=== PATIENT | female | born 1995 | race Caucasian/White ===

== ENCOUNTER 2016-11-13 02:27 | Emergency (ER) | payer OTHER ==
[~2016-11-13] VITALS: Ht 157.5 cm; Wt 77.0 kg
[2016-11-13 02:30] VITALS: BP 137/91; PULSE 91; RESP 14; TEMP 98; O2SAT 98
[2016-11-13] MEDS ORDERED: PROZ20CA11 PO (02:45)
[2016-11-13] MEDS ORDERED: birth control (02:45)
--- NOTE | 2016-11-13 02:50 | PD ---
HPI Chief Complaint: GI Complaint Time Seen by Provider: 02:41 Travel History International Travel<30 days: No Contact w/Intl Traveler<30days: No Traveled to known affect area: No History of Present Illness HPI 21-year-old female here with complaint of rectal bleeding. History of hemorrhoids, anal fissure. She's had painless bright red blood per rectum for the last 48 hours with bowel movements. No history of Crohn's, ulcerative colitis and self or family. Patient has never seen this much blood per rectum prompting her ED visit. She had a outpatient EGD and colonoscopy notable only for hemorrhoids approximately 2 years ago. No lightheadedness, dizziness, anticoagulant use. Patient shows pictures of her bloody stools that she took on her phone to me with scant amount of bright red blood in the toilet bowl water but no clots. PFSH Past Medical History Medical History: Denies Significant Hx ?: Not LMP: 11/05/16 Social History Tobacco Use: No Allergies-Medications (Allergen,Severity, Reaction): Coded Allergies: Penicillin (Verified Allergy, Unknown, 11/13/16) Reported Meds & Prescriptions Reported Meds & Active Scripts Active Reported [ control ] Prozac (Fluoxetine HCl) 20 Mg Cap 20 Mg PO DAILY Review of Systems Except as stated in HPI: all other systems reviewed are Neg Physical Exam Narrative GENERAL: Well-appearing female in no acute distress SKIN: Warm and dry. HEAD: Normocephalic. EYES: No scleral icterus. No injection or drainage. ENT: No nasal bleeding or discharge. Mucous membranes pink and moist. NECK: Supple CARDIOVASCULAR: Regular rate and rhythm. RESPIRATORY: No accessory muscle use. GASTROINTESTINAL: Abdomen soft, non-tender, nondistended. Rectal: External rectal examination was small fissure with no active bleeding. Internal digital rectal examination reveals internal hemorrhoids. Hemoccult- positive. MUSCULOSKELETAL: Normal gait NEUROLOGICAL: Awake and alert. Normal speech. PSYCHIATRIC: Appropriate mood and affect; insight and judgment normal. Data Data Last Documented VS Vital Signs Date Time Temp Pulse Resp B/P Pulse Ox O2 Delivery O2 Flow Rate FiO2 11/13/16 02:30 98.0 91 14 137/91 98 Room Air MDM Medical Decision Making Medical Screen Exam Complete: Yes Emergency Medical Condition: Yes Medical Record Reviewed: Yes Differential Diagnosis 21-year-old female here with bright red blood per rectum. Differential includes fissure, hemorrhoid and less likely AVM, polyp, diverticular bleed. Narrative Course Exam is consistent with hemorrhoids, anal fissure and bleeding from same. Patient was encouraged for bowel regimen for home. [facility] Point of Care Internal Pos. & Neg. Controls: Passed Fecal Specimen Occult Blood: Positive Diagnosis Primary Impression: Internal hemorrhoid Additional Impressions: Anal fissure Bright red blood per rectum Referrals: Wendy Meyer MD as needed Additional Instructions: Bowel regimen as discussed. Follow-up with GI if symptoms persist. Med/Other Pt SpecificInfo: No Change to Meds Disposition: 01 DISCHARGE HOME Condition: Stable Yaima Vasquez MD Nov 13, 2016 02:50
== END 2016-11-13 03:04 | disposition home or self-care (01) ==
LOC: NEPE 02:27
DX: K64.8 Other hemorrhoids (principal); K60.2 Anal fissure, unspecified; K62.5 Hemorrhage of anus and rectum
CPT/HCPCS: 99283

== ENCOUNTER 2017-02-16 13:20 | Emergency (ER) | payer OTHER ==
[~2017-02-16 13:20] MED LIST: PROZ20CA11 PO; birth control
[2017-02-16 13:23] VITALS: BP 140/98; PULSE 100; RESP 20; TEMP 98.5; O2SAT 100
[2017-02-16] MEDS ORDERED: SODIUM CHLOR 0.9% 1000 ML INJ 1,000 ML IV ONE (13:45)
[2017-02-16] MEDS ORDERED: SODIUM CHLORIDE 0.9% FLUSH 10 ML FLUSH IVF PRN (13:45)
[2017-02-16 13:53] LABS: BLOOD, URINE NEG (NEG); GLUCOSE,URINE NEG (NEG); KETONE, URINE NEG (NEG); NITRITE,URINE NEG (NEG)
[2017-02-16 13:58] LABS: METHOD OF COLLECTION CLEAN CATCH; URINE COLOR YELLOW (YELLW/STRAW)
[2017-02-16 13:59] LABS: COMMENT (UR) CULT NOT INDICATED; CULTURE IF INDICATED CULT NOT INDICATED; RBC, URINE 0-3 /hpf (0-3); SQUAMOUS EPITHELIAL CELL URINE 0-5 /hpf (0-5)
--- NOTE | 2017-02-16 14:07 | PD ---
HPI Chief Complaint: Dizziness Time Seen by Provider: 13:33 Travel History International Travel<30 days: No Contact w/Intl Traveler<30days: No Traveled to known affect area: No History of Present Illness HPI Patient is a 21-year-old female who presents to emergency room with her mother with multiple complaints. 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 Patient reports that she completed her antibiotics January 24, 2017. Patient reports that she did have her menstrual cycle and was sexually active and did not use protection during her sexual intercourse. Patient reports that she is feeling lightheaded and dizzy and reports that she doesn't feel hungry. Reports concern for possible . Reports no abdominal pain or cramping, reports that she did have 3 episodes of diarrhea today and does feel little nauseous. Patient with no fevers or chills, denies chest pain or shortness breath at this time. Patient denies any abdominal pain. Patient concerned that her symptoms of nausea or vomiting related to . She did not take a home test as "it would be early to see on a home test so I need a blood test." PFSH Past Medical History Depression: Yes Gastrointestinal Disorders: Yes (hemorhoids ) Medical other: Yes (EPSTEINBARR) Tetanus Vaccination: > 5 Years Influenza Vaccination: Yes ?: Unknown Past Surgical History Surgical History: No Previous Surgery Social History Alcohol Use: No Tobacco Use: No Substance Use: No Allergies-Medications (Allergen,Severity, Reaction): Coded Allergies: Penicillin (Verified Allergy, Unknown, 02/16/17) Reported Meds & Prescriptions Reported Meds & Active Scripts Active Zofran Odt (Ondansetron Odt) 4 Mg Tab 4 Mg SL Q6HR PRN Reported [ control ] Prozac (Fluoxetine HCl) 20 Mg Cap 20 Mg PO DAILY Review of Systems General / Constitutional: No: Fever Eyes: No: Visual changes HENT: Positive: Lightheadedness, No: Headaches Cardiovascular: No: Chest Pain or Discomfort Respiratory: No: Shortness of Breath Gastrointestinal: Positive: Nausea, Vomiting, Diarrhea, No: Abdominal Pain Genitourinary: No: Dysuria Musculoskeletal: No: Pain Skin: No Rash Neurologic: No: Weakness Psychiatric: No: Depression Endocrine: No: Polydipsia Hematologic/Lymphatic: No: Easy Bruising Physical Exam Narrative GENERAL: No acute distress, nontoxic SKIN: Focused skin assessment warm/dry. HEAD: Atraumatic. Normocephalic. EYES: Pupils equal and round. No scleral icterus. No injection or drainage. ENT: No nasal bleeding or discharge. Mucous membranes pink and moist. NECK: Trachea midline. No JVD. CARDIOVASCULAR: Regular rate and rhythm. No murmur appreciated. RESPIRATORY: No accessory muscle use. Clear to auscultation. Breath sounds equal bilaterally. GASTROINTESTINAL: Abdomen soft, non-tender, nondistended. MUSCULOSKELETAL: No obvious deformities. No clubbing. No cyanosis. No edema. NEUROLOGICAL: Awake and alert. No obvious cranial nerve deficits. Motor grossly within normal limits. Normal speech. PSYCHIATRIC: Appropriate mood and affect; insight and judgment normal. Data Data Last Documented VS Vital Signs Date Time Temp Pulse Resp B/P Pulse Ox O2 Delivery O2 Flow Rate FiO2 02/16/17 13:35 Room Air 02/16/17 13:23 98.5 100 20 140/98 100 Orders Ed Urine Pregnancytest Poc (02/16/17 13:34) Beta Hcg (Quant/Titer) (02/16/17 13:44) Complete Blood Count With Diff (02/16/17 13:44) Comprehensive Metabolic Panel (02/16/17 13:44) Urinalysis - C+S If Indicated (02/16/17 13:44) Iv Access Insert/Monitor (02/16/17 13:44) Sodium Chloride 0.9% Flush (Ns Flush) (02/16/17 13:45) Sodium Chlor 0.9% 1000 Ml Inj (Ns 1000 M (02/16/17 13:45) Ondansetron Inj (Zofran Inj) (02/16/17 14:15) Labs Laboratory Tests Test 02/16/17 02/16/17 13:50 14:10 Urine Collection Type CLEAN CATCH Urine Color YELLOW Urine Turbidity CLEAR Urine pH 6.0 Urine Specific [place] 1.008 Urine Protein NEG mg/dL Urine Glucose (UA) NEG mg/dL Urine Ketones NEG mg/dL Urine Occult Blood NEG Urine Nitrite NEG Urine Bilirubin NEG Urine Leukocyte Esterase NEG Urine RBC 0-3 /hpf Urine Squamous Epithelial 0-5 /hpf Cells Microscopic Urinalysis Comment CULT NOT INDICATED Urine Collection Time 13:50 White Blood Count 13.5 TH/MM3 Red Blood Count 4.79 MIL/MM3 Hemoglobin 13.4 GM/DL Hematocrit 40.3 % Mean Corpuscular Volume 84.1 FL Mean Corpuscular Hemoglobin 27.9 PG Mean Corpuscular Hemoglobin 33.1 % Concent Red Cell Distribution Width 13.5 % Platelet Count 312 TH/MM3 Mean Platelet Volume 9.8 FL Neutrophils (%) (Auto) 78.4 % Lymphocytes (%) (Auto) 14.2 % Monocytes (%) (Auto) 6.4 % Eosinophils (%) (Auto) 0.8 % Basophils (%) (Auto) 0.2 % Neutrophils # (Auto) 10.6 TH/MM3 Lymphocytes # (Auto) 1.9 TH/MM3 Monocytes # (Auto) 0.9 TH/MM3 Eosinophils # (Auto) 0.1 TH/MM3 Basophils # (Auto) 0.0 TH/MM3 CBC Comment DIFF FINAL Differential Comment Sodium Level 143 MEQ/L Potassium Level 3.7 MEQ/L Chloride Level 109 MEQ/L Carbon Dioxide Level 26.2 MEQ/L Anion Gap 8 MEQ/L Blood Urea Nitrogen 9 MG/DL Creatinine 0.77 MG/DL Estimat Glomerular Filtration 94 ML/MIN Rate Random Glucose 100 MG/DL Calcium Level 8.6 MG/DL Total Bilirubin 0.2 MG/DL Aspartate Amino Transf 13 U/L (AST/SGOT) Alanine Aminotransferase 22 U/L (ALT/SGPT) Alkaline Phosphatase 57 U/L Total Protein 7.1 GM/DL Albumin 3.5 GM/DL Human Chorionic Gonadotropin, LESS THAN 1 Quant MIU/ML MDM Medical Decision Making Medical Screen Exam Complete: Yes Emergency Medical Condition: Yes Interpretation(s) Vital Signs Date Time Temp Pulse Resp B/P Pulse Ox O2 Delivery O2 Flow Rate FiO2 02/16/17 13:35 Room Air 02/16/17 13:23 98.5 100 20 140/98 100 Differential Diagnosis , gastroenteritis, electrolyte abnormality, gastritis, dehydration Narrative Course Patient is a 21 year old female who presents to ER with her mother with c/o of dizzyness, nausea and vomiting and diarrhea since this morning. Patient reports that she feels a little lightheaded, reports that she doesn't feel hungry like she normally does. She reports that she had sexual intercourse and did not use protection and is concerned that she may have early . Patient requesting blood work to confirm or reject diagnosis of Patient is nontoxic on evaluation, patient with normal neurological exam. Patient is laughing and smiling, patient with no abdominal pain, then is soft, nontender, nondistended, no peritoneal signs. Vital Signs Date Time Temp Pulse Resp B/P Pulse Ox O2 Delivery O2 Flow Rate FiO2 02/16/17 13:35 Room Air 02/16/17 13:23 98.5 100 20 140/98 100 Patient's vital signs are stable at this time, plan to obtain lab work including hCG Quant, will give IV fluids and antiemetics as patient reports that she feels nauseous. Laboratory Tests Test 02/16/17 02/16/17 13:50 14:10 Urine Collection Type CLEAN CATCH Urine Color YELLOW (YELLW/STRAW) Urine Turbidity CLEAR (CLEAR) Urine pH 6.0 (5.0-8.5) Urine Specific [place] 1.008 (1.002-1.035) Urine Protein NEG mg/dL (NEG-TRACE) Urine Glucose (UA) NEG mg/dL (NEG) Urine Ketones NEG mg/dL (NEG) Urine Occult Blood NEG (NEG) Urine Nitrite NEG (NEG) Urine Bilirubin NEG (NEG) Urine Leukocyte Esterase NEG (NEG) Urine RBC 0-3 /hpf (0-3) Urine Squamous Epithelial 0-5 /hpf (0-5) Cells Microscopic Urinalysis Comment CULT NOT INDICATED Urine Collection Time 13:50 White Blood Count 13.5 TH/MM3 (4.0-11.0) Red Blood Count 4.79 MIL/MM3 (4.00-5.30) Hemoglobin 13.4 GM/DL (11.6-15.3) Hematocrit 40.3 % (35.0-46.0) Mean Corpuscular Volume 84.1 FL (80.0-100.0) Mean Corpuscular Hemoglobin 27.9 PG (27.0-34.0) Mean Corpuscular Hemoglobin 33.1 % Concent (32.0-36.0) Red Cell Distribution Width 13.5 % (11.6-17.2) Platelet Count 312 TH/MM3 (150-450) Mean Platelet Volume 9.8 FL (7.0-11.0) Neutrophils (%) (Auto) 78.4 % (16.0-70.0) Lymphocytes (%) (Auto) 14.2 % (9.0-44.0) Monocytes (%) (Auto) 6.4 % (0.0-8.0) Eosinophils (%) (Auto) 0.8 % (0.0-4.0) Basophils (%) (Auto) 0.2 % (0.0-2.0) Neutrophils # (Auto) 10.6 TH/MM3 (1.8-7.7) Lymphocytes # (Auto) 1.9 TH/MM3 (1.0-4.8) Monocytes # (Auto) 0.9 TH/MM3 (0-0.9) Eosinophils # (Auto) 0.1 TH/MM3 (0-0.4) Basophils # (Auto) 0.0 TH/MM3 (0-0.2) CBC Comment DIFF FINAL Differential Comment Sodium Level 143 MEQ/L (136-145) Potassium Level 3.7 MEQ/L (3.5-5.1) Chloride Level 109 MEQ/L (98-107) Carbon Dioxide Level 26.2 MEQ/L (21.0-32.0) Anion Gap 8 MEQ/L (5-15) Blood Urea Nitrogen 9 MG/DL (7-18) Creatinine 0.77 MG/DL (0.50-1.00) Estimat Glomerular Filtration 94 ML/MIN (>89) Rate Random Glucose 100 MG/DL (74-106) Calcium Level 8.6 MG/DL (8.5-10.1) Total Bilirubin 0.2 MG/DL (0.2-1.0) Aspartate Amino Transf 13 U/L (15-37) (AST/SGOT) Alanine Aminotransferase 22 U/L (10-53) (ALT/SGPT) Alkaline Phosphatase 57 U/L (45-117) Total Protein 7.1 GM/DL (6.4-8.2) Albumin 3.5 GM/DL (3.4-5.0) Human Chorionic Gonadotropin, LESS THAN 1 Quant MIU/ML (0-5) Vital Signs Date Time Temp Pulse Resp B/P Pulse Ox O2 Delivery O2 Flow Rate FiO2 02/16/17 13:35 Room Air 02/16/17 13:23 98.5 100 20 140/98 100 Patient reevaluated, patient reports that she feels much better at this time. Patient reports complete resolution of dizziness as well as nausea. Abdomen is soft, nontender, nondistended, no peritoneal signs. Patient reports that she feels so much better after I told her that her HCG quant is negative. Patient will follow-up with her primary care doctor and will return to emergency room as needed Diagnosis Primary Impression: Nausea & vomiting Qualified Code: R11.2 - Non-intractable vomiting with nausea, unspecified vomiting type Additional Impression: Dizziness Patient Instructions: General Instructions Additional Instructions: Please stop with your primary care doctor Return to emergency room as needed or if symptoms worsen or progress Please drink plenty of fluids Med/Other Pt SpecificInfo: Prescription(s) given Scripts Ondansetron Odt (Zofran Odt)4 Mg Tab4 Mg SL Q6HR PRN (Nausea/Vomiting) #30 TAB Ref 0 Prov:Quyen Gould DO 02/16/17 Disposition: 01 DISCHARGE HOME Condition: Stable Quyen Gould DO February 16, 2017 14:06
[2017-02-16] MEDS ORDERED: ONDANSETRON HCL 4 MG/2 ML VIAL IV PUSH ONE (14:15)
[2017-02-16 14:16] LABS: AUTOMATED NEUTROPHIL # 10.6 TH/MM3 (1.8-7.7); BASOPHIL % 0.2 % (0.0-2.0); EOSINOPHIL # 0.1 TH/MM3 (0-0.4); EOSINOPHIL % 0.8 % (0.0-4.0); HEMATOCRIT 40.3 % (35.0-46.0); LYMPH % 14.2 % (9.0-44.0); LYMPHOCYTE # 1.9 TH/MM3 (1.0-4.8); MEAN CELL VOLUME 84.1 FL (80.0-100.0); MEAN CORPUSCULAR HEMOGLOBIN 27.9 PG (27.0-34.0); MEAN CORPUSCULAR HGB CONC 33.1 % (32.0-36.0); MONO % 6.4 % (0.0-8.0); NEUT % 78.4 % (16.0-70.0); PLATELET COUNT 312 TH/MM3 (150-450); RED BLOOD COUNT 4.79 MIL/MM3 (4.00-5.30); RED CELL DISTRIBUTION WIDTH 13.5 % (11.6-17.2); WHITE BLOOD COUNT 13.5 TH/MM3 (4.0-11.0)
[2017-02-16 14:17] LABS: HEMO FLAGS DIFF FINAL
[2017-02-16 14:34] LABS: CHLORIDE 109 MEQ/L (98-107); POTASSIUM 3.7 MEQ/L (3.5-5.1); SODIUM (NA) 143 MEQ/L (136-145)
[2017-02-16 14:39] LABS: ANION GAP 8 MEQ/L (5-15); BICARBONATE 26.2 MEQ/L (21.0-32.0); BLOOD UREA NITROGEN 9 MG/DL (7-18)
[2017-02-16 14:42] LABS: ALT (GPT) 22 U/L (10-53); AST (GOT) 13 U/L (15-37); GLOMERULAR FILTRATION RATE 94 ML/MIN (>89)
[2017-02-16 14:43] LABS: TOTAL BILIRUBIN ADULT 0.2 MG/DL (0.2-1.0)
[2017-02-16 14:45] LABS: ALKALINE PHOSPHATASE 57 U/L (45-117)
[2017-02-16 14:47] LABS: BETA HCG QUANT LESS THAN 1 MIU/ML (0-5)
[2017-02-16] MEDS ORDERED: ZOFR4TAB3 SL (14:56)
[2017-02-16 15:11] VITALS: BP 102/60; PULSE 71; RESP 14; O2SAT 98
== END 2017-02-16 15:14 | disposition home or self-care (01) ==
LOC: PHED 13:20
DX: R11.2 Nausea with vomiting, unspecified (principal); R42 Dizziness and giddiness; R19.7 Diarrhea, unspecified; F32.9 Major depressive disorder, single episode, unspecified; Z79.899 Other long term (current) drug therapy; Z88.0 Allergy status to penicillin
CPT/HCPCS: 80053; 81001; 84702; 84703; 85025; 96360; 99284; J7030

== ENCOUNTER 2017-09-17 21:36 | Emergency (ER) | payer OTHER ==
[~2017-09-17] VITALS: Ht 157.5 cm; Wt 80.0 kg
[~2017-09-17 21:36] MED LIST changes: +ZOFR4TAB3 SL
[2017-09-17 21:38] VITALS: BP 136/84; PULSE 83; RESP 16; TEMP 98; O2SAT 99
[2017-09-17] MEDS ORDERED: CLEO300C2 PO (21:48)
[2017-09-17] MEDS ORDERED: SODIUM CHLOR 0.9% 1000 ML INJ 1,000 ML IV ONE (22:45)
--- NOTE | 2017-09-17 23:05 | RADRPT ---
EXAM DATE/TIME: 09/17/2017 22:55 [facility] COMPARISON: No previous studies available for comparison. INDICATIONS : Neck and back pain on and off for 4 weeks. Fever started 2 days ago. MEDICAL HISTORY : None. SURGICAL HISTORY : None. ENCOUNTER: Initial ACUITY: 2 days PAIN SCORE: 0/10 LOCATION: Bilateral chest FINDINGS: A single view of the chest demonstrates the lungs to be symmetrically aerated without evidence of mas s, infiltrate or effusion. The cardiomediastinal contours are unremarkable. Osseous structures are intact. CONCLUSION: No acute disease. Duc Heard MD on September 17, 2017 at 23:03 Board Certified Radiologist. This report was verified electronically.
[2017-09-17 23:23] LABS: AUTOMATED NEUTROPHIL # 12.1 TH/MM3 (1.8-7.7); BASOPHIL % 0.2 % (0.0-2.0); EOSINOPHIL # 0.2 TH/MM3 (0-0.4); EOSINOPHIL % 0.8 % (0.0-4.0); LYMPH % 36.9 % (9.0-44.0); LYMPHOCYTE # 8.2 TH/MM3 (1.0-4.8); MEAN CELL VOLUME 85.5 FL (80.0-100.0); MEAN CORPUSCULAR HGB CONC 32.7 % (32.0-36.0); MONO % 7.5 % (0.0-8.0); NEUT % 54.6 % (16.0-70.0); PLATELET COUNT 334 TH/MM3 (150-450); RED BLOOD COUNT 4.56 MIL/MM3 (4.00-5.30); RED CELL DISTRIBUTION WIDTH 13.4 % (11.6-17.2); WHITE BLOOD COUNT 22.2 TH/MM3 (4.0-11.0)
[2017-09-17 23:27] LABS: HEMO FLAGS AUTO DIFF
[2017-09-17 23:38] LABS: APTT (PATIENT) 24.4 SEC (24.3-30.1); PROTHROMBIN TIME - PATIENT 10.2 SEC (9.8-11.6)
[2017-09-18] LABS: ALT (GPT) 24 U/L (10-53); ANION GAP 6 MEQ/L (5-15); AST (GOT) 11 U/L (15-37); BLOOD UREA NITROGEN 12 MG/DL (7-18); CHLORIDE 103 MEQ/L (98-107); GLOMERULAR FILTRATION RATE 105 ML/MIN (>89); POTASSIUM 3.5 MEQ/L (3.5-5.1); SODIUM (NA) 141 MEQ/L (136-145)
[2017-09-18 00:01] LABS: ALKALINE PHOSPHATASE 72 U/L (45-117); TOTAL BILIRUBIN ADULT 0.1 MG/DL (0.2-1.0)
[2017-09-18 00:04] LABS: BANDS 1 % (0-6); BASOPHILS 1 % (0-2); NEUTROPHIL # MANUAL DIFF 13.8 TH/MM3 (1.8-7.7); PLATELET ESTIMATE SMEAR NORMAL (NORMAL); PLATELET MORPHOLOGY NORMAL (NORMAL); POLYS (SEG NEUTROPHILS) 61 % (16-70); SCAN/DIFF FINAL DIFF MANUAL; WBC DIFF SAMPLE 100
[2017-09-18 00:15] LABS: BLOOD, URINE NEG (NEG); GLUCOSE,URINE NEG (NEG); KETONE, URINE NEG (NEG); MUCUS URINE FEW /lpf (OCC); NITRITE,URINE NEG (NEG); SQUAMOUS EPITHELIAL CELL URINE 5 /hpf (0-5); URINE COLOR YELLOW (YELLW/STRAW)
[2017-09-18] MEDS ORDERED: CEFEPIME INJ 2,000 MG in SODIUM CHLORIDE 0.9% INJ 100 ML IV ONE (00:15)
[2017-09-18] MEDS ORDERED: VANCOMYCIN INJ 1,000 MG in SODIUM CHLOR 0.9% 250 ML INJ 250 ML IV ONE (00:15)
[2017-09-18 00:17] LABS: COMMENT (UR) CATH-CULT NOT IND; CULTURE IF INDICATED CATH CULTURE NOT IND
[2017-09-18] MEDS ORDERED: GADODIAMIDE PF 287 MG/ML 5 ML VIAL (for RAD MRI) IV PUSH ONE (01:41)
--- NOTE | 2017-09-18 02:06 | PD ---
HPI Chief Complaint: Cold / Flu Symptoms Time Seen by Provider: 22:41 Travel History International Travel<30 days: No Contact w/Intl Traveler<30days: No Traveled to known affect area: No History of Present Illness HPI 22 year-old female presents to the emergency department by private transportation the care of her mother for evaluation of upper back pain and tenderness patient has had multiple courses of antibiotic and steroid therapy since the beginning of August when she presented for cold symptoms. Patient initially started with upper respiratory type symptoms and cervical lymphadenopathy at the beginning of August. Patient was initially treated with steroids for symptomatic relief and then was placed on a course of azithromycin. Symptoms seem to improve but after completing course of antibiotic she again reviewed developed the same symptoms and additional round of azithromycin was administered. Patient symptoms again seemed to resolve but then again presented with fever lymphadenopathy and upper respiratory infection symptoms. Patient recently completed a 10 day course of clindamycin and a five- day course of steroids. Patient states as recently as Tuesday she had a fever of 10 2F. Patient was able to work on Tuesday during her normal shift she started noticing increased fatigue and had just completed her antibiotics yesterday. This evening upon returning home she noted marked soreness and tenderness and some palpable swelling to the upper thoracic spine area was referred pain to her neck and mid back. Patient also has noted increased anterior cervical chain lymph nodes to be tender and swollen. Patient does not have a sore throat sinus pressure drainage headache. Patient no longer has a cough. Patient's had no chest pain or shortness of breath. No report of nausea or vomiting abdominal pain or explosive or bloody or mucoid diarrhea. Patient is a good urine output. Patient's had no skin rash or joint pain. Patient denies any exposure to wooded areas or tics or Lyme disease. 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 Patient is otherwise reportedly in good health and takes no routine medications on a regular basis. Patient denies . [facility] Past Medical History Narrative Medical Depression, Ayah-Gilliland virus, childhood seizure; no tobacco use no alcohol use no substance use; nursing notes reviewed Depression: Yes Gastrointestinal Disorders: Yes (hemorhoids ) Social History Alcohol Use: No Tobacco Use: No Substance Use: No Allergies-Medications (Allergen,Severity, Reaction): Coded Allergies: penicillin G (Unverified Allergy, Unknown, 09/17/17) Reported Meds & Prescriptions Reported Meds & Active Scripts Active Reported Cleocin (Clindamycin HCl) 300 Mg Cap 300 Mg PO Q12HR Prozac (Fluoxetine HCl) 20 Mg Cap 20 Mg PO DAILY Review of Systems Except as stated in HPI: all other systems reviewed are Neg General / Constitutional: Positive: Fever HENT: Positive: Congestion, Neck Pain, No: Headaches, Vertigo, Lightheadedness , Neck Stiffness Cardiovascular: No: Chest Pain or Discomfort Respiratory: No: Shortness of Breath Gastrointestinal: No: Nausea, Vomiting, Diarrhea, Abdominal Pain Genitourinary: No: Urgency, Frequency, Dysuria, Flank Pain Musculoskeletal: Positive: Myalgias, Arthralgias Skin: No Rash Neurologic: No: Weakness, Dizziness Psychiatric: No: Anxiety Physical Exam Narrative GENERAL: Well-developed well-nourished female in no acute distress no respiratory distress; GCS 15 SKIN: Warm and dry. No rash. HEAD: Normocephalic. EYES: No scleral icterus. No injection or drainage. NECK: Supple, trachea midline. No JVD. Mild anterior cervical chain lymphadenopathy. Mild tenderness to palpation along the posterior base of the neck midline with some palpable soft tissue fullness no meningismus no nuchal rigidity. CARDIOVASCULAR: Regular rate and rhythm without murmurs, gallops, or rubs. RESPIRATORY: Breath sounds equal bilaterally. No accessory muscle use. GASTROINTESTINAL: Abdomen soft, non-tender, nondistended. MUSCULOSKELETAL: No cyanosis, or edema. Bilateral upper extremity and lower extremity full range of motion with 5 over 5 strength sensory exam intact. BACK: Tender to palpation along the upper thoracic spine with some palpable soft tissue fullness without induration fluctuance erythema or warmth without obvious deformity. No CVA tenderness. Data Data Last Documented VS Vital Signs Date Time Temp Pulse Resp B/P (MAP) Pulse Ox O2 Delivery O2 Flow Rate FiO2 09/18/17 02:48 80 18 118/67 (84) 99 Room Air 09/17/17 21:38 98.0 Orders Orders Sepsis Workup Initiated (09/17/17 ) Complete Blood Count With Diff (09/17/17 22:42) Comprehensive Metabolic Panel (09/17/17 22:42) Prothrombin Time / Inr (Pt) (09/17/17 22:42) Act Partial Throm Time (Ptt) (09/17/17 22:42) Lactic Acid Sepsis Protocol (09/17/17 22:42) Magnesium (Mg) (09/17/17 22:42) Lipase (09/17/17 22:42) Urinalysis - C+S If Indicated (09/17/17 22:42) Blood Culture (09/17/17 22:42) Chest, Single Ap (09/17/17 22:42) Blood Glucose (09/17/17 22:42) Ecg Monitoring (09/17/17 22:42) Iv Access Insert/Monitor (09/17/17 22:42) Oximetry (09/17/17 22:42) Oxygen Administration (09/17/17 22:42) Ed Urine Pregnancytest Poc (09/17/17 22:42) C-Reactive Protein (Crp) (09/17/17 22:42) Sodium Chlor 0.9% 1000 Ml Inj (Ns 1000 M (09/17/17 22:45) Mri C Spine W&W/O Contrast (09/18/17 ) Mri L Spine W&W/O Contrast (09/18/17 ) Mri T Spine W & W/O Contrast (09/18/17 ) Vancomycin Inj (Vancomycin Inj) (09/18/17 00:15) Cefepime Inj (Maxipime Inj) (09/18/17 00:15) Gadodiamide Pf Inj (Omniscan Pf Inj) (09/18/17 01:41) Ketorolac Inj (Toradol Inj) (09/18/17 03:00) Sodium Chlor 0.9% 1000 Ml Inj (Ns 1000 M (09/18/17 03:00) Ed Discharge Order (09/18/17 03:06) Labs Laboratory Tests Test 09/17/17 22:04 09/17/17 23:15 White Blood Count 22.2 TH/MM3 Red Blood Count 4.56 MIL/MM3 Hemoglobin 12.8 GM/DL Hematocrit 39.0 % Mean Corpuscular Volume 85.5 FL Mean Corpuscular Hemoglobin 28.0 PG Mean Corpuscular Hemoglobin Concent 32.7 % Red Cell Distribution Width 13.4 % Platelet Count 334 TH/MM3 Mean Platelet Volume 8.4 FL Neutrophils (%) (Auto) 54.6 % Lymphocytes (%) (Auto) 36.9 % Monocytes (%) (Auto) 7.5 % Eosinophils (%) (Auto) 0.8 % Basophils (%) (Auto) 0.2 % Neutrophils # (Auto) 12.1 TH/MM3 Lymphocytes # (Auto) 8.2 TH/MM3 Monocytes # (Auto) 1.7 TH/MM3 Eosinophils # (Auto) 0.2 TH/MM3 Basophils # (Auto) 0.0 TH/MM3 CBC Comment AUTO DIFF Differential Total Cells Counted 100 Neutrophils % (Manual) 61 % Band Neutrophils % 1 % Lymphocytes % 34 % Monocytes % 3 % Basophils % 1 % Neutrophils # (Manual) 13.8 TH/MM3 Differential Comment FINAL DIFF MANUAL Platelet Estimate NORMAL Platelet Morphology Comment NORMAL Prothrombin Time 10.2 SEC Prothromb Time International Ratio 1.0 RATIO Activated Partial Thromboplast Time 24.4 SEC Blood Urea Nitrogen 12 MG/DL Creatinine 0.69 MG/DL Random Glucose 82 MG/DL Total Protein 7.0 GM/DL Albumin 3.4 GM/DL Calcium Level 8.3 MG/DL Magnesium Level 2.0 MG/DL Alkaline Phosphatase 72 U/L Aspartate Amino Transf (AST/SGOT) 11 U/L Alanine Aminotransferase (ALT/SGPT) 24 U/L Total Bilirubin 0.1 MG/DL Sodium Level 141 MEQ/L Potassium Level 3.5 MEQ/L Chloride Level 103 MEQ/L Carbon Dioxide Level 32.0 MEQ/L Anion Gap 6 MEQ/L Estimat Glomerular Filtration Rate 105 ML/MIN Lactic Acid Level 0.9 mmol/L C-Reactive Protein 0.58 MG/DL Lipase 136 U/L Urine Color YELLOW Urine Turbidity HAZY Urine pH 7.0 Urine Specific [place] 1.020 Urine Protein NEG mg/dL Urine Glucose (UA) NEG mg/dL Urine Ketones NEG mg/dL Urine Occult Blood NEG Urine Nitrite NEG Urine Bilirubin NEG Urine Urobilinogen LESS THAN 2.0 MG/DL Urine Leukocyte Esterase SMALL Urine RBC LESS THAN 1 /hpf Urine WBC 3 /hpf Urine Squamous Epithelial Cells 5 /hpf Urine Amorphous Sediment SMALL Urine Mucus FEW /lpf Microscopic Urinalysis Comment CATH-CULT NOT IND MDM Medical Decision Making Medical Screen Exam Complete: Yes Emergency Medical Condition: Yes Medical Record Reviewed: Yes Interpretation(s) CBC & BMP Diagram 09/17/17 22:04 Total Protein 7.0, Albumin 3.4, Calcium Level 8.3 L, Magnesium Level 2.0, Alkaline Phosphatase 72, Aspartate Amino Transf (AST/SGOT) 11 L, Alanine Aminotransferase (ALT/SGPT) 24, Total Bilirubin 0.1 L Vital Signs Date Time Temp Pulse Resp B/P (MAP) Pulse Ox O2 Delivery O2 Flow Rate FiO2 09/18/17 02:48 80 18 118/67 (84) 99 Room Air 09/17/17 21:38 98.0 83 16 136/84 (101) 99 Room Air lactic acid: 0.9, not elevated c-rp: 0.58, mildly elevated Differential Diagnosis Lymphadenopathy sepsis epidural abscess lymphoma Narrative Course IV access obtained specimens collected and sent for resulting patient presently covered with IV antibiotics after blood cultures and lactic acid specimens collected Patient resting comfortably after IV fluids waiting for imaging studies chest x- ray reveals no acute process total white cell count is elevated at 22,000 but has a normal automated differential this probably reflects patient's hydration status stress demargination and recent high-dose steroid use. Patient has left for MRI series of the cervical thoracic and lumbar spine to evaluate for abscess MRI resulted and MRI of the cervical spine has and lumbar spine are read as normal per reading radiologist Patient informed of imaging results and patient feels improved at this time; again white cell count is 22,000 but this is an isolated white cell count she has not had fever since Tuesday and differential is normal without bandemia or left shift; cultures are pending. Patient appears to be stable for outpatient management and close follow-up with her primary care provider; patient will be given work excuse for no work 2 days is to follow up with her primary on Tuesday and is to return to the emergency department for should she develop recurrent fever 100.4F or greater. Sepsis Criteria SIRS Criteria (2 or more): WBC > 16205, < 4000 or > 10% bands Diagnosis Primary Impression: Lymphadenopathy of head and neck region Referrals: Primary Care Physician 2 days Patient Instructions: General Instructions Departure Forms: Tests/Procedures, Work Release Special Instructions: No work 2 days Additional Instructions: Monitor temperature every 4 hours with thermometer Take acetaminophen/Tylenol every 4 hours for fever 100.4F or greater Take ibuprofen/Advil/Motrin every 6-8 hours as needed for fever 100.4F or greater or for pain associated inflammation No work 2 days Return to the emergency department for fever 100.4F or greater or for any concerns follow-up with primary care provider; call office on Tuesday to schedule follow- up appointment; will need to have repeat laboratory work performed Med/Other Pt SpecificInfo: No Change to Meds Disposition: 01 DISCHARGE HOME Condition: Stable Irene Menjivar MD Sep 18, 2017 02:06
--- NOTE | 2017-09-18 02:28 | RADRPT ---
EXAM DATE/TIME: 09/18/2017 01:11 [facility] COMPARISON: No previous studies available for comparison. INDICATIONS : Abscess. CONTRAST: 15 cc Omniscan (gadodiamide) IV MEDICAL HISTORY : Ayah-Gilliland Virus. Vertigo. SURGICAL HISTORY : None. ENCOUNTER: Subsequent ACUITY: 1 month PAIN SCORE: 4/10 LOCATION: [facility] TECHNIQUE: Multiplanar, multisequence MRI examination of the cervical spine was performed. FINDINGS: VERTEBRAE: Normal vertebral body height. Homogeneous marrow signal. ALIGNMENT: No evidence of subluxation. CORD: Normal configuration and signal. POST FOSSA: The cerebellar tonsils are normal in position. POST-CONTRAST: No abnormal areas of enhancement are seen. C2-C3: The thecal sac has a normal configuration. There is no evidence of disc herniation or spinal canal stenosis. The neural foramina are patent bilaterally. C3-C4: The thecal sac has a normal configuration. There is no evidence of disc herniation or spinal canal s tenosis. The neural foramina are patent bilaterally. C4-C5: The thecal sac has a normal configuration. There is no evidence of disc herniation or spinal canal s tenosis. The neural foramina are patent bilaterally. C5-C6: The thecal sac has a normal configuration. There is no evidence of disc herniation or spinal canal s tenosis. The neural foramina are patent bilaterally. C6-C7: The thecal sac has a normal configuration. There is no evidence of disc herniation or spinal canal s tenosis. The neural foramina are patent bilaterally. C7-T1: The thecal sac has a normal configuration. There is no evidence of disc herniation or spinal canal s tenosis. The neural foramina are patent bilaterally. CONCLUSION: Normal examination. Duc Heard MD on September 18, 2017 at 2:26 Board Certified Radiologist. This report was verified electronically.
--- NOTE | 2017-09-18 02:29 | RADRPT ---
EXAM DATE/TIME: 09/18/2017 01:11 [facility] COMPARISON: MRI CERVICAL SPINE W & W/O CONTRAST, September 18, 2017, 1:11. MRI LUMBAR SPINE W & W/O CONTRAST, Sep, 1:11. INDICATIONS : Abscess. CONTRAST: 15 cc Omniscan (gadodiamide) IV MEDICAL HISTORY : Ayah-Gilliland Virus. Vertigo. SURGICAL HISTORY : None. ENCOUNTER: Subsequent ACUITY: 1 month PAIN SCORE: 4/10 LOCATION: [facility] TECHNIQUE: Multiplanar multisequence MRI of the thoracic spine was performed. FINDINGS: VERTEBRA: Normal vertebral body height. Homogeneous marrow signal. ALIGNMENT: Normal. CORD: Normal position and configuration. POST CONTRAST: No abnormal areas of contrast enhancement seen. T1-T2: Normal. T2-T3: The thecal sac has a normal diameter. No evidence of disc bulge or protrusion. T3-T4: The thecal sac has a normal diameter. No evidence of disc bulge or protrusion. T4-T5: The thecal sac has a normal diameter. No evidence of disc bulge or protrusion. T5-T6: The thecal sac has a normal diameter. No evidence of disc bulge or protrusion. T6-T7: The thecal sac has a normal diameter. No evidence of disc bulge or protrusion. T7-T8: The thecal sac has a normal diameter. No evidence of disc bulge or protrusion. T8-T9: The thecal sac has a normal diameter. No evidence of disc bulge or protrusion. T9-T10: The thecal sac has a normal diameter. No evidence of disc bulge or protrusion. T10-T11: The thecal sac has a normal diameter. No evidence of disc bulge or protrusion. T11-T12: The thecal sac has a normal diameter. No evidence of disc bulge or protrusion. T12-L1: The thecal sac has a normal diameter. No evidence of disc bulge or protrusion. CONCLUSION: Normal examination. Duc Heard MD on September 18, 2017 at 2:27 Board Certified Radiologist. This report was verified electronically.
--- NOTE | 2017-09-18 02:30 | RADRPT ---
EXAM DATE/TIME: 09/18/2017 01:11 [facility] COMPARISON: MRI THORACIC SPINE W & W/O CONTRAST, September 18, 2017, 1:11. INDICATIONS : Abscess. CONTRAST: 15 cc Omniscan (gadodiamide) IV MEDICAL HISTORY : Ayah-Gilliland Virus. Vertigo. SURGICAL HISTORY : None. ENCOUNTER: Subsequent ACUITY: 1 month PAIN SCORE: 4/10 LOCATION: [facility] TECHNIQUE: Multiplanar multisequence MRI of the lumbar spine was performed with and without contrast. FINDINGS: The most caudal appearing lumbar vertebra is numbered as L5. VERTEBRAE: Homogeneous signal. Normal alignment. CONUS: Normal level and configuration. POST CONTRAST: No abnormal areas of contrast enhancement are seen. T12-L1: The thecal sac has a normal diameter. No evidence of disc bulge or protrusion. The neural foramina are patent bilaterally. L1-L2: The thecal sac has a normal diameter. No evidence of disc bulge or protrusion. The neural foramina are patent bilaterally. L2-L3: The thecal sac has a normal diameter. No evidence of disc bulge or protrusion. The neural foramina are patent bilaterally. L3-L4: The thecal sac has a normal diameter. No evidence of disc bulge or protrusion. The neural foramina are patent bilaterally. L4-L5: The thecal sac has a normal diameter. No evidence of disc bulge or protrusion. The neural foramina are patent bilaterally. L5-S1: The thecal sac has a normal diameter. No evidence of disc bulge or protrusion. The neural foramina are patent bilaterally. CONCLUSION: Normal examination. Duc Heard MD on September 18, 2017 at 2:28 Board Certified Radiologist. This report was verified electronically.
[2017-09-18 02:48] VITALS: BP 118/67; PULSE 80; RESP 18; O2SAT 99
[2017-09-18] MEDS ORDERED: KETOROLAC TROMETHAMINE 30 MG/ML (IVP) VIAL IV PUSH ONE (03:00)
[2017-09-18] MEDS ORDERED: SODIUM CHLOR 0.9% 1000 ML INJ 1,000 ML IV ONE (03:00)
== END 2017-09-18 04:55 | disposition home or self-care (01) ==
LOC: NEPC 21:36
DX: R59.1 Generalized enlarged lymph nodes (principal); R50.9 Fever, unspecified; M54.6 Pain in thoracic spine; M54.2 Cervicalgia; F32.9 Major depressive disorder, single episode, unspecified; Z79.899 Other long term (current) drug therapy
CPT/HCPCS: 71010; 72156; 72157; 72158; 80053; 81001; 83605; 83690; 83735; 84703; 85007; 85027; 85610; 85730; 86140; 87040; 96361; 96365; 96366; 96368; 96375; 99285; A9579; J0692; J1885; J3370; J7030; J7050

== ENCOUNTER → 2018-03-16 | Outpatient (CLI) | payer OTHER ==
[~2018-03-16] MED LIST changes: +CLEO300C2 PO; -ZOFR4TAB3 SL; -birth control
== END ==
LOC: CLAB 07:47
PROVIDERS: ATTEND Obstetrics & Gynecology
DX: Z32.01 Encounter for pregnancy test, result positive (principal)
CPT/HCPCS: 36415; 84702